=== PATIENT | male | born 1970 | race Caucasian/White ===

== ENCOUNTER 2019-01-22 22:52 | Emergency (ER) | payer SELFPAY ==
[~2019-01-22] VITALS: Ht 170.2 cm; Wt 74.8 kg
[2019-01-22 22:54] VITALS: Ht 170.2 cm; Wt 74.8 kg
[2019-01-22 23:46] LABS: CALCIUM 8.5 mg/dL (8.5-10.1); CARBON DIOXIDE 24.4 mmol/L (21-32); CREATININE SERUM 1.5 mg/dL (0.7-1.3); POTASSIUM SERUM 3.1 mmol/L (3.5-5.1)
[2019-01-22 23:48] LABS: BASOPHIL % 0.3 % (0-2); PLATELET COUNT 349 x10^3mcL (130-400)
[2019-01-22 23:51] LABS: BILIRUBIN TOTAL 0.2 mg/dL (0.20-1.00); TOTAL PROTEIN, SERUM 6.6 g/dL (6.4-8.2)
[2019-01-22 23:57] LABS: ALBUMIN 3.1 g/dL (3.4-5.0)
[2019-01-23 01:47] VITALS: BP 137/87
== END 2019-01-23 01:47 | disposition home or self-care (01) ==
LOC: ED 22:52
PROVIDERS: Emergency Medicine
DX: N20.0 Calculus of kidney (principal); I10 Essential (primary) hypertension
CPT/HCPCS: J1885; J2405; J3010; J7030

== ENCOUNTER 2019-06-19 23:06 | Emergency (ER) | payer MEDICAID ==
[~2019-06-19] VITALS: Ht 167.6 cm; Wt 83.9 kg
[2019-06-19 23:18] VITALS: Ht 167.6 cm; Wt 83.9 kg
[2019-06-20 00:21] LABS: BASOPHIL % 0.2 % (0-2); PLATELET COUNT 377 x10^3mcL (130-400); RED CELL DISTRIBUTION WIDTH 12.9 % (11.5-14.5)
[2019-06-20 00:43] LABS: CALCIUM 9.4 mg/dL (8.5-10.1); CARBON DIOXIDE 32.3 mmol/L (21-32); CREATININE SERUM 1.5 mg/dL (0.7-1.3); POTASSIUM SERUM 3.6 mmol/L (3.5-5.1)
[2019-06-20 00:47] LABS: ALBUMIN 3.5 g/dL (3.4-5.0); BILIRUBIN TOTAL 0.3 mg/dL (0.20-1.00); TOTAL PROTEIN, SERUM 7.7 g/dL (6.4-8.2)
[2019-06-20 02:52] VITALS: BP 127/74
== END 2019-06-20 02:52 | disposition home or self-care (01) ==
LOC: ED 23:06
PROVIDERS: Emergency Medicine
DX: N20.0 Calculus of kidney (principal); I10 Essential (primary) hypertension
CPT/HCPCS: J1885; J2405; J7030